=== PATIENT | male | born 1965 | race African-American/Black ===

== ENCOUNTER 2016-08-07 20:20 | Inpatient (IN) | payer MEDICAID ==
[~2016-08-07] VITALS: Ht 182.9 cm; Wt 85.3 kg
[2016-08-07 22:03] LABS: BASOPHIL % 0.3 % (0-2); PLATELET COUNT 190 x10^3mcL (130-400)
[2016-08-07 22:11] LABS: CALCIUM 9.3 mg/dL (8.5-10.1); CARBON DIOXIDE 31.1 mmol/L (21-32); CHLORIDE SERUM 105 mmol/L (98-107); CREATININE SERUM 1.4 mg/dL (0.7-1.3); GFR1 57 mL/min; GLUCOSE SERUM 109 mg/dL (74-106); POTASSIUM SERUM 3.4 mmol/L (3.5-5.1); SODIUM SERUM 143 mmol/L (136-145)
[2016-08-07 22:16] LABS: ALBUMIN 4.3 g/dL (3.4-5.0); ALKALINE PHOSPHATASE 83 U/L (46-116); ALT/SGPT 29 U/L (16-63); AST/SGOT 18 U/L (15-37); BILIRUBIN TOTAL 0.8 mg/dL (0.20-1.00); TOTAL PROTEIN, SERUM 8.3 g/dL (6.4-8.2)
[2016-08-07 22:35] LABS: AMPHETAMINE QUAL UR POSITIVE (NEG <=1000)
[2016-08-09 11:28] LABS: FREE T4 0.95 ng/dL (0.76-1.46); FREE THYROXINE INDEX 2.1 ug/dL (1.4-4.5); T4(THYROXINE) 5.8 ug/dL (4.7-13.3)
[2016-08-09 11:36] LABS: T3 TOTAL 0.87 ng/mL
[2016-08-09 18:07] LABS: CHOLESTEROL/HDL RATIO 3.8; PHOSPHOROUS 2.9 mg/dL (2.5-4.9)
[2016-08-09 19:32] VITALS: BP 110/68
[2016-08-10 04:42] VITALS: BP 107/75
[2016-08-10 06:05] LABS: BASOPHIL % 0.4 % (0-2); PLATELET COUNT 159 x10^3mcL (130-400); RED CELL DISTRIBUTION WIDTH 13.3 % (11.5-14.5)
[2016-08-10 06:24] LABS: CALCIUM 8.5 mg/dL (8.5-10.1); CARBON DIOXIDE 26.8 mmol/L (21-32); CHLORIDE SERUM 106 mmol/L (98-107); CREATININE SERUM 1.1 mg/dL (0.7-1.3); GFR1 > 60 mL/min; GLUCOSE SERUM 89 mg/dL (74-106); POTASSIUM SERUM 3.7 mmol/L (3.5-5.1); SODIUM SERUM 140 mmol/L (136-145)
[2016-08-10 08:00] VITALS: BP 100/59
[2016-08-10 13:22] LABS: microscopic required? NO
[2016-08-10 13:34] LABS: UA SPECIFIC GRAVITY 1.025 (1.005-1.035); urine erythrocyte NEGATIVE (NEGATIVE)
[2016-08-10 14:27] VITALS: BP 111/79
[2016-08-10 16:59] VITALS: BP 99/65
[2016-08-10 20:41] VITALS: BP 124/68
[2016-08-11 05:12] VITALS: BP 106/67
[2016-08-11 06:28] LABS: CALCIUM 8.3 mg/dL (8.5-10.1); CARBON DIOXIDE 28.6 mmol/L (21-32); CHLORIDE SERUM 108 mmol/L (98-107); CREATININE SERUM 1.1 mg/dL (0.7-1.3); GFR1 > 60 mL/min; GLUCOSE SERUM 94 mg/dL (74-106); POTASSIUM SERUM 3.8 mmol/L (3.5-5.1); SODIUM SERUM 141 mmol/L (136-145)
[2016-08-11 11:31] VITALS: BP 106/59
[2016-08-11 13:15] VITALS: BP 112/69
[2016-08-11 17:14] VITALS: BP 104/69
[2016-08-11 21:02] VITALS: BP 123/69
[2016-08-12 05:40] VITALS: BP 113/70
[2016-08-12 07:50] LABS: CALCIUM 8.3 mg/dL (8.5-10.1); CHLORIDE SERUM 104 mmol/L (98-107); GFR1 > 60 mL/min; GLUCOSE SERUM 102 mg/dL (74-106); POTASSIUM SERUM 3.8 mmol/L (3.5-5.1); SODIUM SERUM 140 mmol/L (136-145)
[2016-08-12 09:56] VITALS: BP 123/75
[2016-08-12 18:20] VITALS: Ht 182.9 cm; Wt 85.3 kg
[2016-08-12 21:17] VITALS: BP 121/82
[2016-08-13 05:41] VITALS: BP 104/69
[2016-08-13 14:06] VITALS: BP 116/75
[2016-08-13 16:58] VITALS: BP 119/77
[2016-08-13 21:27] VITALS: BP 97/57
[2016-08-14 05:22] VITALS: BP 111/69
[2016-08-14 06:16] LABS: CALCIUM 8.9 mg/dL (8.5-10.1); CARBON DIOXIDE 30.1 mmol/L (21-32); CHLORIDE SERUM 105 mmol/L (98-107); CREATININE SERUM 1.1 mg/dL (0.7-1.3); GFR1 > 60 mL/min; GLUCOSE SERUM 94 mg/dL (74-106); SODIUM SERUM 143 mmol/L (136-145)
[2016-08-14 09:00] VITALS: BP 124/86
[2016-08-14 17:43] VITALS: BP 121/65
[2016-08-14 21:35] VITALS: BP 128/64
[2016-08-15 06:29] LABS: CALCIUM 8.6 mg/dL (8.5-10.1); CARBON DIOXIDE 29.3 mmol/L (21-32); CHLORIDE SERUM 105 mmol/L (98-107); GFR1 > 60 mL/min; GLUCOSE SERUM 86 mg/dL (74-106); POTASSIUM SERUM 3.5 mmol/L (3.5-5.1); SODIUM SERUM 141 mmol/L (136-145)
[2016-08-15 06:35] VITALS: BP 122/82
[2016-08-15 06:50] LABS: BASOPHIL % 0.4 % (0-2); PLATELET COUNT 159 x10^3mcL (130-400); RED CELL DISTRIBUTION WIDTH 12.9 % (11.5-14.5)
[2016-08-15 08:26] VITALS: BP 105/62
[2016-08-15 17:23] VITALS: BP 122/74
[2016-08-16 09:47] VITALS: BP 119/72
[2016-08-16] MEDS ORDERED: CEL20 PO (10:02)
[2016-08-16] MEDS ORDERED: QUETIAPINE FUMA25 M1 PO (10:03)
[2016-08-16 13:39] VITALS: BP 119/72
[2016-08-16 17:04] VITALS: BP 125/78
[2016-08-16 21:52] VITALS: BP 108/78
[2016-08-17 05:25] VITALS: BP 114/69
[2016-08-17 06:05] VITALS: BP 114/69
== END 2016-08-17 06:40 | disposition home or self-care (01) | DRG 812 ==
LOC: ED 20:20 → DU 08-09 16:32 → MU 08-13 11:58
PROVIDERS: Emergency Medicine; ADMIT Family Medicine
DX: T43.621A Poisoning by amphetamines, accidental (unintentional), initial encounter (principal); N17.0 Acute kidney failure with tubular necrosis; G92 Toxic encephalopathy; R45.851 Suicidal ideations; F20.9 Schizophrenia, unspecified; F15.129 Other stimulant abuse with intoxication, unspecified; F10.10 Alcohol abuse, uncomplicated; E87.6 Hypokalemia; Z68.25 Body mass index [BMI] 25.0-25.9, adult; Z59.0 Homelessness; Y92.9 Unspecified place or not applicable
CPT/HCPCS: 36415; 83880; 84439; G0480; Q0092